=== PATIENT | female | born 2000 | race African-American/Black ===

== ENCOUNTER 2022-10-27 21:59 | Inpatient (IN) | payer OTHER ==
[~2022-10-27] VITALS: Ht 165.1 cm; Wt 81.1 kg
[2022-10-27] MEDS ORDERED: NS 1,000 ML IV ONE (22:05)
[2022-10-27 22:23] LABS: BASO % 0.5 % (0.0-1.0); EOS # 0.1 10^3/uL (0.0-0.5); EOS % 1.1 % (0.0-3.0); HEMATOCRIT 39.4 % (36.0-47.0); HEMOGLOBIN 13.2 g/dl (12.0-15.5); LYMPH # 2.5 10^3/uL (1.5-5.0); LYMPH % 40.8 % (24.0-44.0); MEAN CORPUSCULAR HEMOGLOBIN 30.1 pg (27.0-33.0); MEAN CORPUSCULAR HGB CONC 33.5 g/dl (32.0-36.5); MEAN CORPUSCULAR VOLUME 89.7 fl (80.0-96.0); MONO # 0.5 10^3/uL (0.0-0.8); MONO % 8.8 % (2.0-8.0); NEUTROPHILS % 48.6 % (36.0-66.0); PLATELET COUNT, AUTOMATED 239 10^3/uL (150-450); RED BLOOD COUNT 4.39 10^6/uL (4.00-5.40); WHITE BLOOD COUNT 6.1 10^3/uL (4.0-10.0)
[2022-10-27 22:54] LABS: ETHYL ALCOHOL (ETHANOL) 0.003 % (0.000-0.010)
[2022-10-27] MEDS ORDERED: CHARCOAL ACTIVATED LIQUID 25GM/120ML BTL PO ONE (22:55)
[2022-10-27 22:56] LABS: ACETAMINOPHEN LEVEL < 2.0 UG/ML (10.0-20.0); ALBUMIN 3.8 G/DL (3.2-5.2); ALKALINE PHOSPHATASE 92 U/L (46-116); ALT/SGPT 21 U/L (7.0-40); AST/SGOT 23 U/L (<34); BILIRUBIN,DIRECT 0.2 MG/DL (<0.4); BILIRUBIN,TOTAL 0.7 MG/DL (0.3-1.2); BLOOD UREA NITROGEN 9 MG/DL (9-23); CARBON DIOXIDE LEVEL 24 MMOL/L (20-31); CHLORIDE LEVEL 102 MMOL/L (98-107); CPK CREATINE PHOSPHOKINASE 315 U/L (34-145); CREATININE FOR GFR 0.87 MG/DL (0.55-1.30); GLUCOSE, FASTING 80 MG/DL (60-100); POTASSIUM SERUM 3.4 MMOL/L (3.5-5.1); SALICYLATE LEVEL < 3.0 MG/DL (<30); SODIUM LEVEL 137 MMOL/L (136-145); TOTAL PROTEIN 8.2 G/DL (5.7-8.2)
[2022-10-27 22:58] LABS: HCG, SERUM QUALITATIVE NEGATIVE (NEGATIVE); THYROID STIMULATING HORMONE 3.445 uIU/ML (0.48-4.17)
[2022-10-27 23:04] LABS: RSV AMPLIFICATION NEGATIVE (NEGATIVE)
[2022-10-28 01:46] LABS: AMPHETAMINES LEVEL URINE NEGATIVE (NEGATIVE); BARBITURATES URINE NEGATIVE (NEGATIVE); BENZODIAZEPINES URINE NEGATIVE (NEGATIVE); CANNABINOIDS URINE NEGATIVE (NEGATIVE); COCAINE METABOLITE URINE NEGATIVE (NEGATIVE); METHADONE URINE NEGATIVE (NEGATIVE); OPIATES URINE NEGATIVE (NEGATIVE); PHENCYCLIDINE URINE NEGATIVE (NEGATIVE)
[2022-10-28] MEDS ORDERED: HOME MED LIST COMPLETE! XX SCH (08:55)
[2022-10-29] MEDS: NICOTINE 21MG/24HR 1 EA TRANSDERMAL TD SCH (09:00)
[2022-10-29] MEDS ORDERED: MOM 30ML SUSPENSION UDC PO PRN (11:25)
[2022-10-29] MEDS ORDERED: MAALOX 30 ML SUSP *UDC PO PRN (11:25)
[2022-10-29 12:03] VITALS: BP 101/57
[2022-10-29] MEDS ORDERED: POTASSIUM CHLORIDE 10MEQ SR TABLET PO ONE (12:30)
[2022-10-29 18:23] VITALS: BP 138/67
[2022-10-29] MEDS: traZODone 50 MG TAB PO PRN (21:58)
[2022-10-30 06:04] VITALS: BP 108/56
[2022-10-30] MEDS: NICOTINE 21MG/24HR 1 EA TRANSDERMAL TD SCH (09:00)
[2022-10-30 16:48] VITALS: BP 117/62
[2022-10-31 06:24] VITALS: BP 106/56
[2022-10-31] MEDS: NICOTINE 21MG/24HR 1 EA TRANSDERMAL TD SCH (07:51)
[2022-10-31] MEDS ORDERED: NICOTINE 21MG/24HR 1 EA TRANSDERMAL TD PRN (09:50)
[2022-10-31 16:58] VITALS: BP 128/81
[2022-10-31] MEDS: traZODone 50 MG TAB PO PRN (20:10)
[2022-11-01 06:45] VITALS: BP 107/55
[2022-11-01 16:27] VITALS: BP 132/69
[2022-11-01] MEDS: traZODone 50 MG TAB PO PRN (21:18)
[2022-11-02 06:17] VITALS: BP 116/57
== END 2022-11-02 13:09 | disposition home or self-care (01) | DRG 885 ==
LOC: EDBD 21:59 → M ED 21:59 → M ED INP 10-29 11:23 → M PSY 10-29 12:01
PROVIDERS: ADMIT Student in an Organized Health Care Education/Training Program; ATTEND Psychiatry & Neurology Psychiatry
DX: F32.2 Major depressive disorder, single episode, severe without psychotic features (principal); T45.0X2A Poisoning by antiallergic and antiemetic drugs, intentional self-harm, initial encounter; T48.3X2A Poisoning by antitussives, intentional self-harm, initial encounter; F40.10 Social phobia, unspecified; Z56.6 Other physical and mental strain related to work; F17.290 Nicotine dependence, other tobacco product, uncomplicated; Z91.82 Personal history of military deployment

== ENCOUNTER 2022-11-06 16:44 | Inpatient (IN) | payer OTHER ==
[~2022-11-06] VITALS: Ht 165.1 cm; Wt 72.7 kg
[2022-11-06 17:40] LABS: HEMATOCRIT 37.9 % (36.0-47.0); HEMOGLOBIN 12.4 g/dl (12.0-15.5); MEAN CORPUSCULAR HEMOGLOBIN 29.5 pg (27.0-33.0); MEAN CORPUSCULAR HGB CONC 32.7 g/dl (32.0-36.5); MEAN CORPUSCULAR VOLUME 90.2 fl (80.0-96.0); PLATELET COUNT, AUTOMATED 248 10^3/uL (150-450); WHITE BLOOD COUNT 6.6 10^3/uL (4.0-10.0)
[2022-11-06 17:48] LABS: ETHYL ALCOHOL (ETHANOL) 0.005 % (0.000-0.010)
[2022-11-06 17:49] LABS: SALICYLATE LEVEL < 3.0 MG/DL (<30)
[2022-11-06 17:50] LABS: ACETAMINOPHEN LEVEL < 2.0 UG/ML (10.0-20.0); ALBUMIN 3.6 G/DL (3.2-5.2); ALKALINE PHOSPHATASE 89 U/L (46-116); ALT/SGPT 19 U/L (7.0-40); AST/SGOT 12 U/L (<34); BILIRUBIN,DIRECT 0.4 MG/DL (<0.4); BILIRUBIN,TOTAL 1.1 MG/DL (0.3-1.2); BLOOD UREA NITROGEN 8 MG/DL (9-23); CARBON DIOXIDE LEVEL 28 MMOL/L (20-31); CHLORIDE LEVEL 105 MMOL/L (98-107); CREATININE FOR GFR 0.84 MG/DL (0.55-1.30); GLUCOSE, FASTING 85 MG/DL (60-100); POTASSIUM SERUM 3.7 MMOL/L (3.5-5.1); SODIUM LEVEL 136 MMOL/L (136-145); TOTAL PROTEIN 7.9 G/DL (5.7-8.2)
[2022-11-06 17:53] LABS: THYROID STIMULATING HORMONE 1.513 uIU/ML (0.48-4.17)
[2022-11-06 17:59] LABS: AMPHETAMINES LEVEL URINE NEGATIVE (NEGATIVE); BARBITURATES URINE NEGATIVE (NEGATIVE); BENZODIAZEPINES URINE NEGATIVE (NEGATIVE)
[2022-11-06 18:00] LABS: CANNABINOIDS URINE POSITIVE (NEGATIVE); COCAINE METABOLITE URINE NEGATIVE (NEGATIVE); METHADONE URINE NEGATIVE (NEGATIVE); OPIATES URINE NEGATIVE (NEGATIVE); PHENCYCLIDINE URINE NEGATIVE (NEGATIVE)
[2022-11-06 18:35] LABS: HCG, SERUM QUALITATIVE NEGATIVE (NEGATIVE)
[2022-11-06] MEDS ORDERED: HOME MED LIST COMPLETE! XX SCH (20:15)
[2022-11-06] MEDS ORDERED: traZODone 50 MG TAB PO ONE (22:15)
[2022-11-07] MEDS ORDERED: MAALOX 30 ML SUSP *UDC PO PRN (11:15)
[2022-11-07] MEDS ORDERED: ACETAMINOPHEN TAB 650MG DOSE (2X325MG) PO PRN (11:15)
[2022-11-07] MEDS ORDERED: MOM 30ML SUSPENSION UDC PO PRN (11:15)
[2022-11-07 13:02] LABS: RSV AMPLIFICATION NEGATIVE (NEGATIVE)
[2022-11-07 13:26] VITALS: BP 124/70
[2022-11-07] MEDS: traZODone 50 MG TAB PO PRN (21:33)
[2022-11-08 06:44] VITALS: BP 111/58
[2022-11-08 16:23] VITALS: BP 105/56
[2022-11-08] MEDS: traZODone 50 MG TAB PO PRN (22:19)
[2022-11-09 17:04] VITALS: BP 109/62
[2022-11-09] MEDS: traZODone 50 MG TAB PO PRN (19:49)
[2022-11-10 06:43] VITALS: BP 89/48
[2022-11-10] MEDS ORDERED: TRAZ-252 PO (08:36)
== END 2022-11-10 11:56 | disposition home or self-care (01) | DRG 882 ==
LOC: M ED 16:44 → EDBD 16:44 → M ED INP 11-07 11:13 → M PSY 11-07 13:39
PROVIDERS: ADMIT Psychiatry & Neurology Psychiatry; ATTEND Psychiatry & Neurology Psychiatry
DX: F43.25 Adjustment disorder with mixed disturbance of emotions and conduct (principal); R45.851 Suicidal ideations; F33.9 Major depressive disorder, recurrent, unspecified; F60.3 Borderline personality disorder

== ENCOUNTER 2022-11-12 10:36 | Emergency (ER) | payer OTHER ==
[~2022-11-12] VITALS: Ht 165.1 cm; Wt 85.6 kg
[~2022-11-12 10:36] MED LIST: TRAZ-252 PO
[2022-11-12 11:45] LABS: BASO % 0.4 % (0.0-1.0); EOS % 0.8 % (0.0-3.0); HEMATOCRIT 42.4 % (36.0-47.0); HEMOGLOBIN 13.7 g/dl (12.0-15.5); LYMPH # 1.5 10^3/uL (1.5-5.0); MEAN CORPUSCULAR HGB CONC 32.3 g/dl (32.0-36.5); MEAN CORPUSCULAR VOLUME 89.6 fl (80.0-96.0); MONO # 0.4 10^3/uL (0.0-0.8); MONO % 6.9 % (2.0-8.0); NEUTROPHILS # 3.1 10^3/uL (1.5-8.5); NEUTROPHILS % 61.7 % (36.0-66.0); PLATELET COUNT, AUTOMATED 246 10^3/uL (150-450); RED BLOOD COUNT 4.73 10^6/uL (4.00-5.40); WHITE BLOOD COUNT 5.1 10^3/uL (4.0-10.0)
[2022-11-12 12:22] LABS: HCG, SERUM QUALITATIVE NEGATIVE (NEGATIVE)
[2022-11-12 13:06] LABS: ALBUMIN 3.7 G/DL (3.2-5.2); ALKALINE PHOSPHATASE 88 U/L (46-116); ALT/SGPT 19 U/L (7.0-40); AST/SGOT 18 U/L (<34); BILIRUBIN,DIRECT 0.2 MG/DL (<0.4); BILIRUBIN,TOTAL 0.7 MG/DL (0.3-1.2); BLOOD UREA NITROGEN 11 MG/DL (9-23); CALCIUM LEVEL 9.6 MG/DL (8.5-10.1); CARBON DIOXIDE LEVEL 24 MMOL/L (20-31); CHLORIDE LEVEL 104 MMOL/L (98-107); CREATININE FOR GFR 0.75 MG/DL (0.55-1.30); GLUCOSE, FASTING 84 MG/DL (60-100); LIPASE 29 U/L (12-53); POTASSIUM SERUM 4.3 MMOL/L (3.5-5.1); SODIUM LEVEL 137 MMOL/L (136-145); TOTAL PROTEIN 8.2 G/DL (5.7-8.2)
[2022-11-12 14:33] LABS: GC DNA AMPLIFICATION NEGATIVE (NEGATIVE)
[2022-11-12] MEDS ORDERED: DOXYCYCLINE HYCLATE 100MG TABLET PO ONE (14:55)
[2022-11-12] MEDS ORDERED: metroNIDAZOLE (FLAGYL) 500MG TABLET PO ONE (14:55)
[2022-11-12] MEDS ORDERED: FLUCONAZOLE 50MG TABLET PO ONE (14:55)
[2022-11-12] MEDS ORDERED: DOXY-443 PO (15:09)
[2022-11-12] MEDS ORDERED: METR-265 PO (15:09)
[2022-11-12 15:31] VITALS: BP 129/80
== END 2022-11-12 15:39 | disposition home or self-care (01) ==
LOC: M ED 10:36
DX: A74.9 Chlamydial infection, unspecified (principal); N76.0 Acute vaginitis; F17.200 Nicotine dependence, unspecified, uncomplicated; Z79.2 Long term (current) use of antibiotics; Z79.899 Other long term (current) drug therapy

== ENCOUNTER 2022-12-15 17:21 | Emergency (ER) | payer OTHER ==
[~2022-12-15] VITALS: Ht 165.1 cm; Wt 84.1 kg
[~2022-12-15 17:21] MED LIST changes: +DOXY-443 PO; +METR-265 PO
[2022-12-15 17:22] VITALS: BP 119/72
[2022-12-15 20:33] LABS: GC DNA AMPLIFICATION NEGATIVE (NEGATIVE)
== END 2022-12-15 20:50 | disposition home or self-care (01) ==
LOC: M ED 19:16
DX: Z11.3 Encounter for screening for infections with a predominantly sexual mode of transmission (principal); Z86.19 Personal history of other infectious and parasitic diseases

== ENCOUNTER 2023-01-21 10:52 | Emergency (ER) | payer OTHER, SELFPAY ==
[~2023-01-21] VITALS: Ht 165.1 cm; Wt 84.4 kg
[2023-01-21 10:52] VITALS: BP 129/82
[2023-01-21 12:12] LABS: URINE PREG TEST NEGATIVE (NEGATIVE)
[2023-01-21] MEDS ORDERED: MACR100C43 PO (12:27)
[2023-01-21 12:52] LABS: GC DNA AMPLIFICATION NEGATIVE (NEGATIVE)
== END 2023-01-21 12:35 | disposition home or self-care (01) ==
LOC: M ED 10:52
DX: N39.0 Urinary tract infection, site not specified (principal)

== ENCOUNTER 2023-01-27 17:45 | Emergency (ER) | payer SELFPAY ==
[~2023-01-27] VITALS: Ht 165.1 cm; Wt 84.0 kg
[~2023-01-27 17:45] MED LIST changes: +MACR100C43 PO
[2023-01-27 17:56] VITALS: BP 113/73
== END 2023-01-27 20:19 | disposition left against medical advice (07) ==
LOC: EDBD 17:45 → M ED 17:45
DX: Z53.21 Procedure and treatment not carried out due to patient leaving prior to being seen by health care provider (principal)